=== PATIENT | female | born 1990 | race Caucasian/White ===

== ENCOUNTER 2016-11-13 22:44 | Inpatient (IN) | payer OTHER ==
[2016-11-13] MEDS ORDERED: HYDROmorphone 1 MG/ML 1 ML SYRINGE IVP STA (22:57)
--- NOTE | 2016-11-13 22:59 | ED ---
Abdominal Pain HPI - General Chief Complaint: Abdominal Pain Stated Complaint: abd pain Time Seen by Provider: 11/13/16 22:49 Source: patient, EMS, RN notes reviewed Mode of arrival: EMS Limitations: no limitations - History of Present Illness Initial Comments: This a 26-year-old female presents emergency Department with chief complaint of right flank pain. Patient is transferred for [facility] 2 year for possible septic stone. Patient states that she has a history kidney stones and states that she has prior stent placed 4 years ago in. Patient states that this will for 1 week after. Patient states that this pain started a few days ago pain radiates from her right back, flank region for right lower abdomen. states that she was in the hospital yesterday and signed out AMA because she had to take care of some things at home. She states she was written prescriptions for antibiotics for states that she was unable to keep anything down because she was vomiting. Patient sent here for further evaluation. Patient was given Rocephin at [facility]. Patient's lab work did reveal leukocytosis and urinary tract infection along with a stone in the right ureter. - Related Data Allergies Allergy/AdvReac Type Severity Reaction Status Date / Time ketorolac [From Toradol] Allergy Rash/Hives Verified 11/13/16 23:18 metronidazole [From Flagyl] Allergy Rash/Hives Verified 11/13/16 23:18 Review of Systems ROS Statement: Those systems with pertinent positive or pertinent negative responses have been documented in the HPI. ROS Other: All systems not noted in ROS Statement are negative. Past Medical History Past Medical History: Asthma History of Any Multi-Drug Resistant Organisms: None Reported Past Surgical History: Tonsillectomy Additional Past Surgical History / Comment(s): kidney stent right side Past Psychological History: Anxiety Smoking Status: Never smoker Past Alcohol Use History: None Reported Past Drug Use History: None Reported General Exam Limitations: no limitations General appearance: alert, in no apparent distress Head exam: Present: atraumatic, normocephalic, normal inspection Respiratory exam: Present: normal lung sounds bilaterally. Absent: respiratory distress, wheezes, rales, rhonchi, stridor Cardiovascular Exam: Present: regular rate, normal rhythm, normal heart sounds. Absent: systolic murmur, diastolic murmur, rubs, gallop, clicks GI/Abdominal exam: Present: soft, tenderness (Mild right-sided), normal bowel sounds. Absent: distended, guarding, rebound, rigid Back exam: Present: CVA tenderness (R). Absent: CVA tenderness (L) Skin exam: Present: warm, dry, intact, normal color. Absent: rash Course Vital Signs 11/13/16 22:47 Temperature 98.6 F Pulse Rate 104 H Respiratory 18 Rate Blood Pressure 164/94 O2 Sat by Pulse 97 Oximetry Disposition Clinical Impression: Ureteral stone, UTI (urinary tract infection) Narrative: septic kidney stone Disposition: ADMITTED IP TO THIS HOSP Condition: Fair Referrals: Nonstaff,Physician [Primary Care Provider] - 1-2 days
[2016-11-13] MEDS ORDERED: NALOXONE 0.4 MG/ML 1 ML VIAL IV PRN (23:22)
[2016-11-13] MEDS ORDERED: ONDANSETRON 4 MG/2 ML VIAL IVP PRN (23:22)
[2016-11-13] MEDS ORDERED: LORazepam 2 MG/ML SYRINGE IV STA (23:27)
[2016-11-13] MEDS: SODIUM CHLORIDE 0.9% 1,000 ML IV SCH (23:44)
--- NOTE | 2016-11-13 23:52 | P.GSHP ---
History of Present Illness H&P Date: 11/13/16 SURYA is a 26-year-old female who approximate 48 hours ago developed severe right flank pain. It persisted such that she ended up in the [place] emergency room this evening. She is evaluated and found to have a 3-4 mm distal ureteral stone with hydronephrosis on the right. The urine was infected. She was febrile and [facility]. She had an elevated white count of 15, 000 was tachycardic. She is transferred to [facility] for further evaluation. We are asked see the patient. The patient does have a history kidney stones. When comfortable at this point in time. Above-mentioned findings had been verified by me. She'll be admitted to hospital for urgent placement of a double-J catheter IV antibiotics. - Constitutional Constitutional: Reports anorexia, Reports chills, Reports fever - Genitourinary (Female) Genitourinary: Reports as per HPI - Musculoskeletal Musculoskeletal: Reports low back pain Past Medical History Past Medical History: Asthma, Osteoarthritis (OA) History of Any Multi-Drug Resistant Organisms: None Reported Past Surgical History: Tonsillectomy Additional Past Surgical History / Comment(s): kidney stent right side Past Psychological History: Anxiety Smoking Status: Never smoker Past Alcohol Use History: None Reported Past Drug Use History: None Reported Medications and Allergies Home Medications Medication Instructions Recorded Confirmed Type ALPRAZolam [Xanax] 0.25 mg PO BID PRN 11/13/16 11/13/16 History Albuterol Inhaler [Ventolin Hfa 1 puff INHALATION RT-QID PRN 11/13/16 11/13/16 History Inhaler] Albuterol Sulfate 1.25 mg INHALATION RT-TID PRN 11/13/16 11/13/16 History Baclofen [Lioresal] 20 mg PO BID PRN 11/13/16 11/13/16 History Budesonide-Formot 160-4.5 Mcg 1 puff INHALATION RT-BID PRN 11/13/16 11/13/16 History [Symbicort 160-4.5 Mcg Inhaler] HYDROcodone/APAP 7.5-325MG [[place] 1 tab PO BID 11/13/16 11/13/16 History 7.5-325] Ibuprofen 600 mg PO BID PRN 11/13/16 11/13/16 History Levofloxacin [Levaquin] 500 mg PO DAILY 11/13/16 11/13/16 History Omeprazole 20 mg PO DAILY 11/13/16 11/13/16 History Ondansetron [Zofran ODT] 4 mg PO Q8HR PRN 11/13/16 11/13/16 History Topiramate [Topamax] 50 mg PO BID 11/13/16 11/13/16 History busPIRone HCL [Buspar] 7.5 mg PO BID 11/13/16 11/13/16 History Allergies Allergy/AdvReac Type Severity Reaction Status Date / Time ketorolac [From Toradol] Allergy Rash/Hives Verified 11/13/16 23:18 metronidazole [From Flagyl] Allergy Rash/Hives Verified 11/13/16 23:18 Surgical - Exam Vital Signs Temp Pulse Resp BP Pulse Ox 98.6 F 104 H 18 164/94 97 11/13/16 22:47 11/13/16 22:47 11/13/16 22:47 11/13/16 22:47 11/13/16 22:47 - General well developed, well nourished, moderate distress, moderate pain - Eyes PERRL - ENT no hearing loss - Neck trachea midline - Respiratory normal expansion, normal respiratory effort - Cardiovascular Rhythm: regular - Abdomen Abdomen: tender - Neurologic normal coordination, normal sensation - Musculoskeletal normal posture - Psychiatric oriented to time, oriented to person, oriented to place, speech is normal, memory intact Assessment and Plan Plan: Impression: Acute right ureteral colic secondary to obstructing distal ureteral stone, urinary tract infection with sepsis, pyonephrosis right Recommendations. The patient will receive IV antibiotics and an emergent placement of a double-J catheter to relieve the obstruction and pyelonephrosis.
[2016-11-14] MEDS ORDERED: PROPOFOL 10 MG/ML 20 ML VIAL IV ONE (00:29)
[2016-11-14] MEDS ORDERED: MIDAZOLAM 2 MG/2 ML VIAL ONE (00:29)
[2016-11-14] MEDS ORDERED: fentaNYL (PF) 50 MCG/ML 2 ML AMP ONE (00:29)
[2016-11-14] MEDS ORDERED: ONDANSETRON 4 MG/2 ML VIAL ONE (00:29)
[2016-11-14] MEDS ORDERED: SODIUM CHLORIDE 0.9% 1,000 ML IV ONE (00:49)
[2016-11-14] MEDS ORDERED: ALBUTEROL SULFATE 1.25 MG INHALATION PRN (00:57)
[2016-11-14] MEDS ORDERED: BACLOFEN 10 MG TAB PO PRN (00:57)
[2016-11-14] MEDS ORDERED: ONDANSETRON ODT 4 MG TAB PO PRN (00:57)
[2016-11-14] MEDS ORDERED: ONDANSETRON 4 MG/2 ML VIAL IVP PRN (01:01)
--- NOTE | 2016-11-14 01:04 | P.OP ---
Date of Procedure: 11/14/16 Preoperative Diagnosis: Ureteral calculus, urinary tract infection with sepsis, right pyelonephrosis Postoperative Diagnosis: Same Procedure(s) Performed: Cystoscopy placement of 6 x 24 double-J catheter Anesthesia: MAC Surgeon: Jose Jarvis Pathology: none sent Condition: stable Disposition: PACU Indications for Procedure: The patient is a 26-year-old female with an obstructing right ureteral calculus in [facility] she has a urinary tract infection with sepsis with fever chills and it was elevated white count. She is tachycardic. She comes for cystoscopy and stent Description of Procedure: Patient brought to the operating suite she is given IV sedation. She's placed lithotomy position with a sterile prep and drape. Cystoscopy is performed identifying acute and chronic cystitis. The right ureteral orifice is identified. The stone was seen on fluoroscopy. An 035 wires passed into the right ureter. It meet some obstruction at the stone just proximal to the bladder on the right side. The wire successfully goes by the stone up into the renal pelvis. Over the wires passed a 6 x 24 double-J catheter that coils in the renal pelvis and in the bladder the bladder strain the patient's awake and returned recovery in good condition tell her procedure well she'll be observed in the hospital overnight. In antibiotics a week to 10 days and then require formal cystoscopy and stent removal as well as stone removal. End of dictation
[2016-11-14] MEDS: HYDROmorphone 1 MG/ML 1 ML SYRINGE IV PRN ×8 (01:47→23:34)
[2016-11-14] MEDS: ALPRAZolam 0.25 MG TAB PO PRN (01:47)
[2016-11-14] MEDS: DEXTROSE 5%-0.45% NACL 1,000 ML IV SCH ×4 (01:56→23:55)
[2016-11-14] MEDS: ALBUTEROL NEBULIZED 2.5 MG/3 ML INHALATION PRN ×2 (07:41→17:43)
--- NOTE | 2016-11-14 07:46 | FL ---
EXAMINATION TYPE: FL fluoroscopy <1hr DATE OF EXAM: 11/14/2016 COMPARISON: NONE HISTORY: Right-sided double J catheter TECHNIQUE: Fluoroscopy. FINDINGS/IMPRESSION: Fluoroscopic guidance was provided during procedure performed by Dr. Jarvis. A total of 8 seconds of fluoroscopic time was utilized during the procedure.
[2016-11-14] MEDS: SYMBICORT 160-4.5 MCG INHALER INHALATION SCH ×2 (07:51→21:25)
[2016-11-14] MEDS: PANTOPRAZOLE 40 MG TABLET PO SCH (08:14)
[2016-11-14] MEDS: LEVOFLOXACIN 500 MG TAB PO SCH (08:14)
[2016-11-14] MEDS: TOPIRAMATE 25 MG TAB PO SCH ×2 (08:14→20:46)
[2016-11-14] MEDS: busPIRone HCl 5 MG TAB PO SCH ×2 (09:00→20:45)
[2016-11-14] MEDS ORDERED: HYDROcodone/APAP 7.5-325MG 1 EACH TAB PO PRN (09:00)
[2016-11-14] MEDS: IBUPROFEN 600 MG TAB PO PRN ×2 (11:21→23:31)
--- NOTE | 2016-11-14 15:04 | P.PN ---
Progress Note - Text The patient underwent stent insertion overnight for a distal ureteral calculus complicating a UTI. She is currently afebrile. She reports discomfort primarily when standing, and I explained that this is likely due to her ureteral stent. Her condition is stable. Antibiotics will be continued.
[2016-11-15] MEDS: SODIUM CHLORIDE 0.9% 1,000 ML IV SCH ×3 (02:12→06:24)
[2016-11-15] MEDS: HYDROmorphone 1 MG/ML 1 ML SYRINGE IV PRN ×2 (03:08→07:08)
[2016-11-15] MEDS: DEXTROSE 5%-0.45% NACL 1,000 ML IV SCH (06:25)
[2016-11-15] MEDS: PANTOPRAZOLE 40 MG TABLET PO SCH (07:04)
[2016-11-15] MEDS: IBUPROFEN 600 MG TAB PO PRN (07:11)
--- NOTE | 2016-11-15 07:38 | P.DS ---
Providers Date of admission: 11/13/16 23:42 Attending physician: Jose Jarvis Primary care physician: Physician Nonstaff Hospital Course: This 26-year-old female transferred from [facility] ons 11/13/2016 for a ureteral calculus, urinary tract infection with sepsis. She required an emergent placement of a double-J catheter. Her pain has disappeared. Her sepsis has cleared. He feels much better. She'll be discharged home today. She'll follow-up in the office next week. She'll be set up for about 10 days to have a formal cystoscopy stent and stone removal. She has O Lazaro and pain medicine at home and she'll continue that as previously instructed. Postoperative instructions have been given. The stent has been discussed. We also will deal with her kidney stones later date after the ureteral stone is dealt with. Patient Condition at Discharge: Good Plan - Discharge Summary New Discharge Prescriptions: No Action Albuterol Inhaler [Ventolin Hfa Inhaler] 1 puff INHALATION RT-QID PRN PRN Reason: Shortness Of Breath Albuterol Sulfate 1.25 mg INHALATION RT-TID PRN PRN Reason: Shortness Of Breath ALPRAZolam [Xanax] 0.25 mg PO BID PRN PRN Reason: Anxiety Baclofen [Lioresal] 20 mg PO BID PRN PRN Reason: Muscle Spasm Budesonide-Formot 160-4.5 Mcg [Symbicort 160-4.5 Mcg Inhaler] 1 puff INHALATION RT-BID PRN PRN Reason: Shortness Of Breath busPIRone HCL [Buspar] 7.5 mg PO BID HYDROcodone/APAP 7.5-325MG [[place] 7.5-325] 1 tab PO BID Ibuprofen 600 mg PO BID PRN PRN Reason: Pain Levofloxacin [Levaquin] 500 mg PO DAILY Omeprazole 20 mg PO DAILY Ondansetron [Zofran ODT] 4 mg PO Q8HR PRN PRN Reason: Nausea And/Or Vomiting Topiramate [Topamax] 50 mg PO BID Discharge Medication List ALPRAZolam [Xanax] 0.25 mg PO BID PRN 11/13/16 [History] Albuterol Inhaler [Ventolin Hfa Inhaler] 1 puff INHALATION RT-QID PRN 11/13/16 [ History] Albuterol Sulfate 1.25 mg INHALATION RT-TID PRN 11/13/16 [History] Baclofen [Lioresal] 20 mg PO BID PRN 11/13/16 [History] Budesonide-Formot 160-4.5 Mcg [Symbicort 160-4.5 Mcg Inhaler] 1 puff INHALATION RT-BID PRN 11/13/16 [History] HYDROcodone/APAP 7.5-325MG [[place] 7.5-325] 1 tab PO BID 11/13/16 [History] Ibuprofen 600 mg PO BID PRN 11/13/16 [History] Levofloxacin [Levaquin] 500 mg PO DAILY 11/13/16 [History] Omeprazole 20 mg PO DAILY 11/13/16 [History] Ondansetron [Zofran ODT] 4 mg PO Q8HR PRN 11/13/16 [History] Topiramate [Topamax] 50 mg PO BID 11/13/16 [History] busPIRone HCL [Buspar] 7.5 mg PO BID 11/13/16 [History] Activity/Diet/Wound Care/Special Instructions: The patient has pain medicine and antibiotic at home she should take as previously instructed Discharge Disposition: HOME SELF-CARE
[2016-11-15 07:56] VITALS: BP 127/88; PULSE 73; RESP 22; TEMP 98.1
[2016-11-15] MEDS: TOPIRAMATE 25 MG TAB PO SCH (08:07)
[2016-11-15] MEDS: LEVOFLOXACIN 500 MG TAB PO SCH (08:08)
[2016-11-15] MEDS: ALPRAZolam 0.25 MG TAB PO PRN (08:11)
[2016-11-15] MEDS: busPIRone HCl 5 MG TAB PO SCH (08:13)
[2016-11-15] MEDS: SYMBICORT 160-4.5 MCG INHALER INHALATION SCH (09:21)
== END 2016-11-15 11:10 | disposition home or self-care (01) | DRG 872 ==
LOC: EC 22:44 → 6PED 23:42
PROVIDERS: ADMIT Urology; ATTEND Urology
PROC: 0T768DZ Dilation of Right Ureter with Intraluminal Device, Via Natural or Artificial Opening Endoscopic (ICD-10-PCS; principal; 2016-11-14 00:44)
DX: A41.9 Sepsis, unspecified organism (principal); N13.6 Pyonephrosis; N20.2 Calculus of kidney with calculus of ureter; F41.9 Anxiety disorder, unspecified; J45.909 Unspecified asthma, uncomplicated; R00.0 Tachycardia, unspecified; M19.90 Unspecified osteoarthritis, unspecified site; Z88.1 Allergy status to other antibiotic agents; Z88.5 Allergy status to narcotic agent; Z91.19 Patient's noncompliance with other medical treatment and regimen; Z87.442 Personal history of urinary calculi; Z79.51 Long term (current) use of inhaled steroids; Z79.899 Other long term (current) drug therapy; Z79.1 Long term (current) use of non-steroidal anti-inflammatories (NSAID); Z79.891 Long term (current) use of opiate analgesic
CPT/HCPCS: 76000; 94640; 94760; 96361; 96374; 99285

== ENCOUNTER 2016-11-18 13:32 | Inpatient (IN) | payer OTHER ==
[2016-11-18] MEDS ORDERED: METOCLOPRAMIDE 5 MG/ML 2 ML VIAL IVP STA (13:46)
[2016-11-18] MEDS ORDERED: SODIUM CHLORIDE 0.9% 1,000 ML IV STA (13:46)
[2016-11-18] MEDS ORDERED: MORPHINE SULFATE 4 MG/ML SYRINGE IV STA ×2 (13:46→16:08)
--- NOTE | 2016-11-18 14:10 | ED ---
Abdominal Pain HPI - General Chief Complaint: Abdominal Pain Stated Complaint: PAIN POST OP KIDNEY Time Seen by Provider: 11/18/16 13:38 Source: patient Mode of arrival: EMS Limitations: no limitations - History of Present Illness Initial Comments: This 26-year-old white female presents complaining of some right flank pain. She states that she recently had a right ureteral stone as well as a urinary tract infection. She was seen at her hospital this past week and had a right ureteral stent placed. Since being discharged several days ago she has had continued right flank pain. She states that this is not relieved with her [place] 7.5/325 twice a day. She also complains of hematuria, frequency, and dysuria. She states that the pain radiates into her vagina. She denies any actual fevers but has had occasional chills. She has had some nausea at times. She is taking Zofran for this with control. No other complaints or modifying factors. - Related Data Home Medications Medication Instructions Recorded Confirmed ALPRAZolam [Xanax] 0.25 mg PO BID PRN 11/13/16 11/18/16 Albuterol Inhaler [Ventolin Hfa 1 puff INHALATION RT-QID PRN 11/13/16 11/18/16 Inhaler] Albuterol Sulfate 1.25 mg INHALATION RT-TID PRN 11/13/16 11/18/16 Baclofen [Lioresal] 20 mg PO BID PRN 11/13/16 11/18/16 Budesonide-Formot 160-4.5 Mcg 1 puff INHALATION RT-BID PRN 11/13/16 11/18/16 [Symbicort 160-4.5 Mcg Inhaler] HYDROcodone/APAP 7.5-325MG [[place] 1 tab PO BID 11/13/16 11/18/16 7.5-325] Ibuprofen 600 mg PO BID PRN 11/13/16 11/18/16 Levofloxacin [Levaquin] 500 mg PO DAILY 11/13/16 11/18/16 Omeprazole 20 mg PO DAILY 11/13/16 11/18/16 Ondansetron [Zofran ODT] 4 mg PO Q8HR PRN 11/13/16 11/18/16 Topiramate [Topamax] 50 mg PO BID 11/13/16 11/18/16 busPIRone HCL [Buspar] 7.5 mg PO BID 11/13/16 11/18/16 Allergies Allergy/AdvReac Type Severity Reaction Status Date / Time ketorolac [From Toradol] Allergy Rash/Hives Verified 11/18/16 13:50 metronidazole [From Flagyl] Allergy Rash/Hives Verified 11/18/16 13:50 Review of Systems ROS Statement: Those systems with pertinent positive or pertinent negative responses have been documented in the HPI. ROS Other: All systems not noted in ROS Statement are negative. Past Medical History Past Medical History: Asthma, Osteoarthritis (OA) Additional Past Medical History / Comment(s): kidney stones History of Any Multi-Drug Resistant Organisms: None Reported Past Surgical History: Tonsillectomy Additional Past Surgical History / Comment(s): kidney stent right side, RT ovary / fallopian tube removed Past Anesthesia/Blood Transfusion Reactions: No Reported Reaction Past Psychological History: Anxiety Smoking Status: Current some day smoker Past Alcohol Use History: None Reported Past Drug Use History: Marijuana - Past Family History Mother Family Medical History: Congestive Heart Failure (CHF) General Exam - General Exam Comments Initial Comments: GENERAL: The patient is well nourished and well hydrated. VITAL SIGNS: Heart rate, blood pressure, respiratory rate reviewed as recorded in nurse's notes. EYES: Pupils are round and reactive. Extraocular movements are intact. No conjunctival / lid redness or swelling. ENT: No external evidence of injury, swelling, or ecchymosis. Airway is patent. Throat is clear. NECK: Nontender. No swelling or evidence of injury. No subcutaneous emphysema. Trachea is midline. No thyroid mass. HEART: Regular rate and rhythm. Good peripheral pulses. LUNGS/CHEST: Breath sounds clear and equal bilaterally. No rales, rhonchi, or wheezes. No ecchymosis, subcutaneous emphysema, or tenderness. ABDOMEN: There is tenderness present to the right flank as well as the right lateral abdomen. No palpable masses or organomegaly. No peritoneal signs. No abdominal wall swelling or ecchymosis. EXTREMITIES: No extremity tenderness. Normal muscle tone and function. No thoracolumbar tenderness. NEUROLOGIC: Sensation is grossly intact. Cranial nerve exam reveals face is symmetrical, tongue is midline, speech is clear. SKIN: No abrasions or ecchymosis is noted. No induration or masses noted. PSYCHIATRIC: Alert and oriented. Appropriate behavior and judgment. Limitations: no limitations Course Vital Signs 11/18/16 11/18/16 11/18/16 13:35 14:09 16:00 Temperature 98.1 F 97.9 F Pulse Rate 76 64 63 Respiratory 18 16 16 Rate Blood Pressure 134/74 115/56 103/59 O2 Sat by Pulse 96 96 98 Oximetry Medical Decision Making - Medical Decision Making The patient was seen and examined. An IV is started and she is hydrated. She also receives some morphine as well as Reglan intravenously. All diagnostics are reviewed. The laboratory shows a leukocytosis. The urinalysis does show hematuria as well as a urinary tract infection. The computed tomography scan of the abdomen and pelvis does show good placement of the ureteral to with no hydronephrosis and no evidence of the ureteral lithiasis. They're still is bilateral renal lithiasis. The patient's pain has been persistent and she receives additional morphine. She has been on Levaquin so her antibiotics will be changed. It is felt as though she would require admission to the hospital for likely pyelonephritis and intractable pain issues. The case is discussed with internal medicine and they're agreeable to admission. - Lab Data Result diagrams: 11/18/16 14:05 11/18/16 14:05 Lab Results 11/18/16 11/18/16 11/18/16 Range/Units 14:05 14:05 14:05 WBC 11.5 H (3.8-10.6) k/uL RBC 4.51 (3.80-5.40) m/uL Hgb 12.8 (11.4-16.0) gm/dL Hct 40.1 (34.0-46.0) % MCV 89.1 (80.0-100.0) fL MCH 28.4 (25.0-35.0) pg MCHC 31.9 (31.0-37.0) g/dL RDW 14.2 (11.5-15.5) % Plt Count 346 (150-450) k/uL Neutrophils % 68 % Lymphocytes % 23 % Monocytes % 5 % Eosinophils % 3 % Basophils % 1 % Neutrophils # 7.8 H (1.3-7.7) k/uL Lymphocytes # 2.7 (1.0-4.8) k/uL Monocytes # 0.6 (0-1.0) k/uL Eosinophils # 0.3 (0-0.7) k/uL Basophils # 0.1 (0-0.2) k/uL PT (9.0-12.0) sec INR (<1.2) APTT (22.0-30.0) sec Sodium 141 (137-145) mmol/L Potassium 4.4 (3.5-5.1) mmol/L Chloride 108 H (98-107) mmol/L Carbon Dioxide 24 (22-30) mmol/L Anion Gap 9 mmol/L BUN 14 (7-17) mg/dL Creatinine 0.89 (0.52-1.04) mg/dL Est GFR (MDRD) Af Amer >60 (>60 ml/min/1.73 sqM) Est GFR (MDRD) Non-Af >60 (>60 ml/min/1.73 sqM) Glucose 89 (74-99) mg/dL Calcium 8.8 (8.4-10.2) mg/dL Total Bilirubin 0.1 L (0.2-1.3) mg/dL AST 16 (14-36) U/L ALT 27 (9-52) U/L Alkaline Phosphatase 59 (38-126) U/L Total Protein 6.4 (6.3-8.2) g/dL Albumin 3.7 (3.5-5.0) g/dL Urine Color Light Red Urine Appearance Cloudy H (Clear) Urine pH 5.5 (5.0-8.0) Ur Specific [place] 1.020 (1.001-1.035) Urine Protein 2+ H (Negative) Urine Glucose (UA) Negative (Negative) Urine Ketones Negative (Negative) Urine Blood Large H (Negative) Urine Nitrite Negative (Negative) Urine Bilirubin Negative (Negative) Urine Urobilinogen <2.0 (<2.0) mg/dL Ur Leukocyte Esterase Large H (Negative) Urine RBC >182 H (0-5) /hpf Urine WBC 54 H (0-5) /hpf Ur Squamous Epith Cells 15 H (0-4) /hpf Urine Bacteria Moderate H (None) /hpf Urine Mucus Many H (None) /hpf 11/18/16 Range/Units 14:05 WBC (3.8-10.6) k/uL RBC (3.80-5.40) m/uL Hgb (11.4-16.0) gm/dL Hct (34.0-46.0) % MCV (80.0-100.0) fL MCH (25.0-35.0) pg MCHC (31.0-37.0) g/dL RDW (11.5-15.5) % Plt Count (150-450) k/uL Neutrophils % % Lymphocytes % % Monocytes % % Eosinophils % % Basophils % % Neutrophils # (1.3-7.7) k/uL Lymphocytes # (1.0-4.8) k/uL Monocytes # (0-1.0) k/uL Eosinophils # (0-0.7) k/uL Basophils # (0-0.2) k/uL PT 10.7 (9.0-12.0) sec INR 1.1 (<1.2) APTT 26.6 (22.0-30.0) sec Sodium (137-145) mmol/L Potassium (3.5-5.1) mmol/L Chloride (98-107) mmol/L Carbon Dioxide (22-30) mmol/L Anion Gap mmol/L BUN (7-17) mg/dL Creatinine (0.52-1.04) mg/dL Est GFR (MDRD) Af Amer (>60 ml/min/1.73 sqM) Est GFR (MDRD) Non-Af (>60 ml/min/1.73 sqM) Glucose (74-99) mg/dL Calcium (8.4-10.2) mg/dL Total Bilirubin (0.2-1.3) mg/dL AST (14-36) U/L ALT (9-52) U/L Alkaline Phosphatase (38-126) U/L Total Protein (6.3-8.2) g/dL Albumin (3.5-5.0) g/dL Urine Color Urine Appearance (Clear) Urine pH (5.0-8.0) Ur Specific [place] (1.001-1.035) Urine Protein (Negative) Urine Glucose (UA) (Negative) Urine Ketones (Negative) Urine Blood (Negative) Urine Nitrite (Negative) Urine Bilirubin (Negative) Urine Urobilinogen (<2.0) mg/dL Ur Leukocyte Esterase (Negative) Urine RBC (0-5) /hpf Urine WBC (0-5) /hpf Ur Squamous Epith Cells (0-4) /hpf Urine Bacteria (None) /hpf Urine Mucus (None) /hpf Disposition Clinical Impression: Flank pain, Nausea, Dysuria, Pyelonephritis, Nephrolithiasis, Leukocytosis, Intractable pain, Hematuria, History of ureter stent Disposition: ADMITTED IP TO THIS HOSP Condition: Good Referrals: Han Ngo DO [Primary Care Provider] - 1-2 days
[2016-11-18 14:22] LABS: Basophils # (A) 0.1 k/uL (0-0.2); Basophils % (A) 1 %; CH 29.4; CHCM 33.2; Eosinophils # (A) 0.3 k/uL (0-0.7); Eosinophils % (A) 3 %; HCT 40.1 % (34.0-46.0); HDW 2.51; HGB 12.8 gm/dL (11.4-16.0); Luc % (Auto) 1; Lymphocytes # (A) 2.7 k/uL (1.0-4.8); Lymphocytes % (A) 23 %; MCH 28.4 pg (25.0-35.0); MCHC 31.9 g/dL (31.0-37.0); MCV 89.1 fL (80.0-100.0); Mean Platelet Volume 6.9; Monocytes # (A) 0.6 k/uL (0-1.0); Monocytes % (A) 5 %; Neutrophils # (A) 7.8 k/uL (1.3-7.7); Neutrophils % (A) 68 %; RBC 4.51 m/uL (3.80-5.40); RDW 14.2 % (11.5-15.5); WBC 11.5 k/uL (3.8-10.6); WBC (Perox) 12.13
[2016-11-18 14:33] LABS: Appearance,Urine Cloudy (Clear); Bacteria,Urine Moderate /hpf; Bilirubin,Urine Negative (Negative); Glucose,Urine (UA) Negative (Negative); Ketones,Urine Negative (Negative); Leukocyte Esterase,Urine Large (Negative); Mucus,Urine Many /hpf; Nitrite,Urine Negative (Negative); PH, Urine 5.5 (5.0-8.0); Particle Count 14135; Protein,Urine 2+ (Negative); RBC,Urine >182 /hpf (0-5); Squamous Epithelial Cell,Urine 15 /hpf (0-4); UA Billing (MACRO vs. MICRO) MICRO; Urobilinogen,Urine <2.0 mg/dL (<2.0); WBC,Urine 54 /hpf (0-5)
[2016-11-18 14:36] LABS: INR 1.1 (<1.2); Partial Thromboplastin Time 26.6 sec (22.0-30.0); Prothrombin Time 10.7 sec (9.0-12.0)
[2016-11-18 14:38] LABS: ALT 27 U/L (9-52); AST 16 U/L (14-36); Alkaline Phosphatase 59 U/L (38-126); Anion Gap 9 mmol/L; Blood Urea Nitrogen 14 mg/dL (7-17); Calcium 8.8 mg/dL (8.4-10.2); Carbon Dioxide 24 mmol/L (22-30); Chloride 108 mmol/L (98-107); Glucose 89 mg/dL (74-99); Non-African American GFR(MDRD) >60 (>60 ml/min/1.73 sqM); Potassium 4.4 mmol/L (3.5-5.1); Sodium 141 mmol/L (137-145); Total Bilirubin 0.1 mg/dL (0.2-1.3); Total Protein 6.4 g/dL (6.3-8.2)
[2016-11-18] MEDS: SODIUM CHLORIDE 0.9% 1,000 ML IV STA (14:58)
--- NOTE | 2016-11-18 15:17 | CT ---
EXAMINATION TYPE: CT abdomen pelvis wo con DATE OF EXAM: 11/18/2016 COMPARISON: Outside CT 11/12/2016 HISTORY: 26-year-old female Right side pain. Recent stent placed in kidney. CT DLP: 1010.5 mGycm. Automated exposure control for dose reduction was used. TECHNIQUE: Contiguous axial scanning of the abdomen and pelvis without IV contrast. Coronal and sagit luis reconstructions performed. FINDINGS: The heart is normal size without pericardial effusion. Some hazy atelectasis posterior lung bases. No pleural effusion. Noncontrast appearance of the liver, gallbladder, adrenal glands, kidneys, and spleen show no gross a bnormality. Three nonobstructive left renal calculi, largest in the lower pole measuring 5 mm. A couple punctate 2 mm nonobstructive calculi in the upper pole of the right kidney. A right ureteral stent is now present. The previously seen 3 mm distal right ureteral calculus is no longer identifie d. The previous hydronephrosis also appears to have resolved. Scattered borderline sized mesenteric lymph nodes measure up to 6 mm in the right abdomen. No dilated small bowel, free fluid, or free air. Mild scattered stool without pericolonic inflammatory change. Bladder is nondistended. Uterus and left ovary is visualized with a 3.3 cm dominant follicle or funct ional cyst. Right ovary not clearly delineated. Small amount of cul-de-sac free fluid likely physiolo gic. Bones: Degenerative changes at the right SI joint with subarticular sclerosis and cystic change. Dege nerative disc disease at L5-S1. No osseous destructive process. IMPRESSION: 1. Right-sided ureteral stent with resolution of the previous hydronephrosis seen on 11/12/2016 as we ll as resolution of the previous 3 mm distal right ureteral calculus. 2. Bilateral nonobstructive nephrolithiasis measuring up to 5 mm. 3. A 3.3 cm dominant follicle or functional cyst in the left ovary. Small amount of cul-de-sac free fluid likely physiologic. 4. Degenerative changes at the right SI joint and degenerative disc disease at L5-S1.
[2016-11-18] MEDS ORDERED: ONDANSETRON 4 MG/2 ML VIAL IVP PRN (16:28)
[2016-11-18] MEDS ORDERED: MORPHINE SULFATE 4 MG/ML SYRINGE IV PRN (16:28)
[2016-11-18] MEDS ORDERED: ACETAMINOPHEN TAB 325 MG TAB PO PRN (16:28)
[2016-11-18] MEDS ORDERED: PIPERACILLIN-TAZOBACTAM 3.375 GM in DEXTROSE/WATER 1 50ML.BAG IVPB STA (16:28)
[2016-11-18] MEDS ORDERED: NALOXONE 0.4 MG/ML 1 ML VIAL IV PRN (16:28)
[2016-11-18] MEDS ORDERED: IBUPROFEN 600 MG TAB PO PRN (16:31)
[2016-11-18] MEDS ORDERED: BACLOFEN 10 MG TAB PO PRN (16:31)
[2016-11-18] MEDS ORDERED: ALBUTEROL NEBULIZED 2.5 MG/3 ML INHALATION PRN (16:31)
[2016-11-18] MEDS ORDERED: ALBUTEROL SULFATE 1.25 MG INHALATION PRN (16:31)
--- NOTE | 2016-11-18 18:36 | P.HPIM ---
History of Present Illness H&P Date: 11/18/16 Chief Complaint: severe right flank pain and hematuria 26-year-old female with past medical history of frequent nephrolithiasis and chills. Patient reports pain mainly in the right flank radiating to the lower back and the right groin area and the vagina she describes the pain as colicky in nature ranging between 10 out of 10 in severity and down to 5 out of 10 in severity in between attacks this has been associated with decrease in her urine output frequent urination and urgency along with dysuria and hematuria. His is also associated with chills nausea and vomiting once nonbloody. She reports no diarrhea no vaginal discharge otherwise no abdominal pain chest pain or trouble breathing. She reports that her problem has mainly started 2 weeks ago for which she was admitted under urology who did cystoscopy and inserted down the ureteral stent on the right side for ureteral stones. CAT scan from today showed resolution of the right ureteral stone along with confirmed position of the right Q ureteral stent. Also suggested at 3.3 cm left ovarian follicle with the free fluid in the cul-de-sac. Patient was discharged a week ago on Levaquin however due to progression of her symptoms she fevers and chills along with worsening urinary symptoms she decided to come back to the hospital. Review of Systems Constitutional: Patient reports no night sweating, no significant weight changes Eyes: Patient reports no visual changes, no eye pain ENT: Patient reports no ear pain, no rhinorrhea, no sore throat Cardiovascular: Patient reports no chest pain, no exertional dyspnea, no peripheral leg edema, no orthopnea, no paroxysmal nocturnal dyspnea Respiratory:Patient reports no cough, no wheezing, no shortness of breath Gastrointestinal: Patient reports no diarrhea, no constipation, Musculoskeletal: Patient reports no muscle pain, no joint pain Psychiatric: Patient reports no changes in mood or memory, no suicidal ideation , no anxiety Endocrine: Patient reports no heat intolerance, no cold intolerance, no excessive thirst, no polyuria Neurological: Patient reports no focal neurologic deficits, no weakness, no numbness, no tingling Hem/Lymphatic: Patient reports no bleeding tendency, no bruising, no swollen lymph glands Allergic/Immun: Patient reports no recent allergic reactions Skin: Patient reports no rashes, no pruritis, no ulcers Past Medical History Past Medical History: Asthma, Osteoarthritis (OA) Additional Past Medical History / Comment(s): kidney stones recurrent History of Any Multi-Drug Resistant Organisms: None Reported Past Surgical History: Tonsillectomy Additional Past Surgical History / Comment(s): kidney stent right side, RT ovary / 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, tonsillectomy, Past Anesthesia/Blood Transfusion Reactions: No Reported Reaction Past Psychological History: Anxiety Smoking Status: Former smoker Past Alcohol Use History: None Reported Past Drug Use History: None Reported - Past Family History Mother Family Medical History: Congestive Heart Failure (CHF) Father Family Medical History: Diabetes Mellitus Medications and Allergies Home Medications and Allergies Comment(s): Reviewed Home Medications Medication Instructions Recorded Confirmed Type ALPRAZolam [Xanax] 0.25 mg PO BID PRN 11/13/16 11/18/16 History Albuterol Inhaler [Ventolin Hfa 1 puff INHALATION RT-QID PRN 11/13/16 11/18/16 History Inhaler] Albuterol Sulfate 1.25 mg INHALATION RT-TID PRN 11/13/16 11/18/16 History Baclofen [Lioresal] 20 mg PO BID PRN 11/13/16 11/18/16 History Budesonide-Formot 160-4.5 Mcg 1 puff INHALATION RT-BID PRN 11/13/16 11/18/16 History [Symbicort 160-4.5 Mcg Inhaler] HYDROcodone/APAP 7.5-325MG [[place] 1 tab PO BID 11/13/16 11/18/16 History 7.5-325] Ibuprofen 600 mg PO BID PRN 11/13/16 11/18/16 History Levofloxacin [Levaquin] 500 mg PO DAILY 11/13/16 11/18/16 History Omeprazole 20 mg PO DAILY 11/13/16 11/18/16 History Ondansetron [Zofran ODT] 4 mg PO Q8HR PRN 11/13/16 11/18/16 History Topiramate [Topamax] 50 mg PO BID 11/13/16 11/18/16 History busPIRone HCL [Buspar] 7.5 mg PO BID 11/13/16 11/18/16 History Allergies Allergy/AdvReac Type Severity Reaction Status Date / Time ketorolac [From Toradol] Allergy Rash/Hives Verified 11/18/16 13:50 metronidazole [From Flagyl] Allergy Rash/Hives Verified 11/18/16 13:50 Physical Exam Vitals: Vital Signs Temp Pulse Pulse Resp BP BP Pulse Ox 11/18/16 18:02 98.6 F 70 20 125/76 96 11/18/16 17:36 97.7 F 72 19 151/91 95 11/18/16 16:00 97.9 F 63 16 103/59 98 11/18/16 14:09 64 16 115/56 96 11/18/16 13:35 98.1 F 76 18 134/74 96 Intake and Output 11/18/16 11/18/16 11/18/16 06:59 14:59 22:59 Other: Weight 109.769 kg 111.7 kg Patient Weight 11/19/16 06:59 Weight 111.7 kg Constitutional: Moderate distress while having attacks of colicky abdominal pain otherwise conversant, pleasant Eyes: Anicteric sclerae, moist conjunctiva, no lid-lag Pupils equal round reactive to light ENMT: NC/AT Oropharynx clear, no erythema, exudates Neck: Supple, FROM, no masses, or JVD No carotid bruits No thyromegaly Lungs: Clear to auscultation Clear to percussion Normal respiratory effort, no accessory muscle use Cardiovascular: Heart regular in rate and rhythm, No murmurs, gallops, or rubs No peripheral edema Abdominal: Soft Nontender, no guarding, rebound or rigidity Abdomen moving with respiration Normoactive bowel sounds No hepatomegaly, No splenomegaly No palpable mass No abdominal wall hernia noted Tenderness to percussion of the right costovertebral angle Skin: Normal temperature, tone, texture, turgor No induration No subcutaneous nodules No rash, lesions No ulcers Capillary refill is immediate over bilateral fingers and toes Extremities: No digital cyanosis No clubbing Pedal pulses intact and symmetrical Radial pulses intact and symmetrical No calf tenderness Psychiatric: Alert and oriented to person, place and time Appropriate affect fair judgment Neuro Muscles Strength 5/5 in all 4 extremities Sensation to light touch grossly present throughout Cranial nerves II-XII grossly intact No focal sensory deficits Lymphatics: no palpable cervical or supraclavicular , or inguinal lymph nodes Results Results: Reviewed CBC & Chem 7: 11/18/16 14:05 11/18/16 14:05 Labs: Abnormal Lab Results - Last 24 Hours (Table) 0911/18/16 11/18/16 Range/Units 14:05 14:05 14:05 WBC 11.5 H (3.8-10.6) k/uL Neutrophils # 7.8 H (1.3-7.7) k/uL Chloride 108 H (98-107) mmol/L Total Bilirubin 0.1 L (0.2-1.3) mg/dL Urine Appearance Cloudy H (Clear) Urine Protein 2+ H (Negative) Urine Blood Large H (Negative) Ur Leukocyte Esterase Large H (Negative) Urine RBC >182 H (0-5) /hpf Urine WBC 54 H (0-5) /hpf Ur Squamous Epith Cells 15 H (0-4) /hpf Urine Bacteria Moderate H (None) /hpf Urine Mucus Many H (None) /hpf Assessment and Plan (1) Pyelonephritis Narrative/Plan: Acute complicated pyelonephritis secondary to right ureteral stent and history of nephrolithiasis. Present on admission . No history of chronic Correa catheter. No evidence of sepsis Discontinue Levaquin, start patient on Rocephin check urine cultures and blood cultures Adjust antibiotics based on culture results Pain control Aggressive IV fluid hydration with normal saline at 150 mL per hour Status: Acute (2) Nephrolithiasis Narrative/Plan: Status post right ureteral stent Consults urology Pain control with NSAIDs Start Flomax Status: Acute (3) Asthma Narrative/Plan: Patient mild persistent asthma continue with home inhalers patient has no history of intubation Status: Chronic (4) DVT prophylaxis Narrative/Plan: Heparin subcu 3 times a day Status: Acute Plan: Surrogate decision-maker: father Renan Lara CODE STATUS: Full code Discussed with: Patient, ER, RN Anticipated discharge: 48-[address]: home with self care
--- NOTE | 2016-11-18 18:40 | P.HPADDEND ---
H&P Addendum H&P Addendum Date: 11/18/16 Advanced Care Planning Active diagnoses: acute pyelonephritis Background: The patient was admitted for treatment of acute UTI. Confirmation and clarification of wishes upon admission. Discussion: Person(s) present and participating in discussion: The patient, and myself Summary: Patient was counseled and educated regarding her disease process, along with plan of care, possible outcomes and complications. The patient chose to be full code and agreed to both CPR and Intubation if needed. In the event that she was not able to make her own medical decisions she has elected her Father, Renan Lara as a surrogate decision maker Time spent: Total time spent face to face in education and discussion directly related to advanced care planning: >15 minutes
[2016-11-18 18:45] VITALS: BMI 39.7
[2016-11-18] MEDS: HYDROmorphone 2 MG/ML 1 ML SYRINGE IM PRN (20:34)
[2016-11-18] MEDS: TAMSULOSIN 0.4 MG CAP.ER.24H PO SCH (20:44)
[2016-11-18] MEDS: TOPIRAMATE 25 MG TAB PO SCH (20:48)
[2016-11-18] MEDS: busPIRone HCl 5 MG TAB PO SCH (20:49)
[2016-11-19] MEDS ORDERED: PIPERACILLIN-TAZOBACTAM 3.375 GM in DEXTROSE/WATER 1 50ML.BAG IVPB SCH
[2016-11-19] MEDS: HYDROcodone/APAP 7.5-325MG 1 EACH TAB PO SCH ×3 (00:15→21:23)
[2016-11-19] MEDS: HYDROmorphone 2 MG/ML 1 ML SYRINGE IM PRN ×7 (00:42→22:11)
[2016-11-19] MEDS: ALPRAZolam 0.25 MG TAB PO PRN ×2 (01:07→18:15)
[2016-11-19] MEDS: SODIUM CHLORIDE 0.9% 1,000 ML IV STA ×3 (01:10→13:13)
[2016-11-19 07:56] LABS: Basophils # (A) 0.1 k/uL (0-0.2); Basophils % (A) 0 %; CHCM 31.6; Eosinophils # (A) 0.4 k/uL (0-0.7); Eosinophils % (A) 4 %; HDW 2.53; HGB 13.2 gm/dL (11.4-16.0); Hypochromasia Slight; Luc # (Auto) 0.13; Luc % (Auto) 1; Lymphocytes # (A) 3.1 k/uL (1.0-4.8); Lymphocytes % (A) 29 %; MCH 29.7 pg (25.0-35.0); MCHC 32.2 g/dL (31.0-37.0); MCV 92.2 fL (80.0-100.0); Mean Platelet Volume 6.9; Monocytes # (A) 0.6 k/uL (0-1.0); Monocytes % (A) 5 %; Neutrophils # (A) 6.4 k/uL (1.3-7.7); Neutrophils % (A) 60 %; RBC 4.44 m/uL (3.80-5.40); RDW 14.1 % (11.5-15.5); WBC 10.6 k/uL (3.8-10.6); WBC (Perox) 10.47
[2016-11-19 08:18] LABS: Anion Gap 10 mmol/L; Blood Urea Nitrogen 8 mg/dL (7-17); Calcium 8.9 mg/dL (8.4-10.2); Carbon Dioxide 22 mmol/L (22-30); Chloride 110 mmol/L (98-107); Glucose 82 mg/dL (74-99); Magnesium 1.9 mg/dL (1.6-2.3); Non-African American GFR(MDRD) >60 (>60 ml/min/1.73 sqM); Potassium 4.3 mmol/L (3.5-5.1); Sodium 142 mmol/L (137-145)
[2016-11-19] MEDS: SYMBICORT 160-4.5 MCG INHALER INHALATION PRN ×2 (08:57→20:33)
[2016-11-19] MEDS: PANTOPRAZOLE 40 MG/10 ML VIAL IV SCH (09:03)
[2016-11-19] MEDS: ENOXAPARIN 40 MG/0.4 ML SYRINGE SQ SCH (09:04)
[2016-11-19] MEDS: busPIRone HCl 5 MG TAB PO SCH ×2 (09:04→21:17)
[2016-11-19] MEDS: TAMSULOSIN 0.4 MG CAP.ER.24H PO SCH (09:04)
[2016-11-19] MEDS: TOPIRAMATE 25 MG TAB PO SCH ×2 (09:05→21:16)
--- NOTE | 2016-11-19 09:13 | P.PN ---
Subjective Principal diagnosis: patient is seen and examined in follow up of acute pyelonephritis failed OP therapy 26 year old female with recurrent nephrolitiasis, presented after being discharged a week ago where at that time she was found to have right uretral stone and underwent cystoscopy and had a uretral stent inserted a week ago. she was discharged on levequin however she is presenting now with worsening urinary symptoms and failed OP therapy with ABx Today she is still complaining of alot of flank pain radiating to the right groin, along with hematuria and nausea. Tolerating diet, afebrile, no chest pain or SOB Objective - Vital Signs Vital signs: Vital Signs Temp 98.7 F 11/19/16 08:33 Pulse 76 11/19/16 09:08 Resp 19 11/19/16 08:33 BP 131/81 11/19/16 08:33 Pulse Ox 97 11/19/16 08:33 Intake & Output 11/18/16 11/19/16 11/19/16 18:59 06:59 18:59 Intake Total 400 Output Total 2000 Balance -1600 Weight 111.7 kg Intake: Oral 400 Output: Urine 2000 Other: Voiding Method Toilet # Voids 2 - Exam Constitutional: vital signs stable, Not in acute distress, pleasant, conversant Lungs: Clear to auscultation bilaterally, normal respiratory effort Cardiovascular: Regular rate and rhythm, no murmurs, no gallops, no rubs, no peripheral edema Gastrointestinal: soft and lax, tenderness over the right costoverteberal angle , bowel sounds positive Extremities: No digital cyanosis, ischemia or clubbing, no calf muscle tenderness, capillary refill is immediate over bilateral toes and fingers Psych: Alert, oriented to place, person and time labs reviewed - Labs CBC & Chem 7: 11/19/16 07:26 11/19/16 07:26 Labs: Abnormal Lab Results - Last 24 Hours (Table) 11/18/16 11/18/16 11/18/16 Range/Units 14:05 14:05 14:05 WBC 11.5 H (3.8-10.6) k/uL Neutrophils # 7.8 H (1.3-7.7) k/uL Chloride 108 H (98-107) mmol/L Total Bilirubin 0.1 L (0.2-1.3) mg/dL Urine Appearance Cloudy H (Clear) Urine Protein 2+ H (Negative) Urine Blood Large H (Negative) Ur Leukocyte Esterase Large H (Negative) Urine RBC >182 H (0-5) /hpf Urine WBC 54 H (0-5) /hpf Ur Squamous Epith Cells 15 H (0-4) /hpf Urine Bacteria Moderate H (None) /hpf Urine Mucus Many H (None) /hpf 11/19/16 Range/Units 07:26 WBC (3.8-10.6) k/uL Neutrophils # (1.3-7.7) k/uL Chloride 110 H (98-107) mmol/L Total Bilirubin (0.2-1.3) mg/dL Urine Appearance (Clear) Urine Protein (Negative) Urine Blood (Negative) Ur Leukocyte Esterase (Negative) Urine RBC (0-5) /hpf Urine WBC (0-5) /hpf Ur Squamous Epith Cells (0-4) /hpf Urine Bacteria (None) /hpf Urine Mucus (None) /hpf Microbiology - Last 24 Hours (Table) 11/18/16 14:05 Urine Culture - Preliminary Urine,Voided Assessment and Plan (1) Pyelonephritis Narrative/Plan: failed outpatient therapy with antibiotics Acute complicated pyelonephritis secondary to right ureteral stent and history of nephrolithiasis. Present on admission . No history of chronic Correa catheter. No evidence of sepsis continue with rocephine, overall seems like patient improving clinically , follow up urine cultures Pain control continue with IV narcotics, and oral motrin Aggressive IV fluid hydration with normal saline at 150 mL per hour await urology input Status: Acute (2) Nephrolithiasis Narrative/Plan: Status post right ureteral stent Consults urology Pain control with NSAIDs continue Flomax strain urine Status: Acute (3) Asthma Narrative/Plan: mild persistent asthma continue with home inhalers patient has no history of intubation Status: Chronic (4) DVT prophylaxis Narrative/Plan: Lovenox daily Status: Acute Plan: hemoglobin stable and improving , patient continues to have hematuria await urine culture results await urology input possible discharge in 24-48 hours Surrogate decision-maker: father Renan Lara CODE STATUS: Full code Discussed with: Patient, RN, and pillowcase cleaner Anticipated discharge place: home with self care
[2016-11-19 13:57] LABS: Hemoglobin A1C 5.4 % (4.2-6.1)
[2016-11-19] MEDS: IBUPROFEN 600 MG TAB PO PRN (14:58)
[2016-11-19] MEDS: OXYBUTYNIN XL 5 MG TAB.ER.24 PO SCH (21:19)
[2016-11-20] MEDS: HYDROmorphone 2 MG/ML 1 ML SYRINGE IM PRN ×3 (01:25→10:55)
[2016-11-20] MEDS: SODIUM CHLORIDE 0.9% 1,000 ML IV STA ×2 (04:03→23:02)
[2016-11-20 07:57] LABS: Basophils # (A) 0.1 k/uL (0-0.2); Basophils % (A) 1 %; CH 28.3; CHCM 31.2; Eosinophils # (A) 0.5 k/uL (0-0.7); Eosinophils % (A) 5 %; HCT 41.2 % (34.0-46.0); HGB 13.1 gm/dL (11.4-16.0); Hypochromasia Slight; Luc # (Auto) 0.18; Luc % (Auto) 2; Lymphocytes % (A) 34 %; MCH 28.9 pg (25.0-35.0); MCHC 31.8 g/dL (31.0-37.0); Mean Platelet Volume 6.7; Monocytes # (A) 0.5 k/uL (0-1.0); Monocytes % (A) 6 %; Neutrophils # (A) 4.7 k/uL (1.3-7.7); Neutrophils % (A) 53 %; RBC 4.52 m/uL (3.80-5.40); RDW 13.2 % (11.5-15.5); WBC (Perox) 9.29
[2016-11-20] MEDS: SYMBICORT 160-4.5 MCG INHALER INHALATION PRN ×2 (08:44→20:25)
[2016-11-20] MEDS: ENOXAPARIN 40 MG/0.4 ML SYRINGE SQ SCH (09:23)
[2016-11-20] MEDS: OXYBUTYNIN XL 5 MG TAB.ER.24 PO SCH (09:23)
[2016-11-20] MEDS: busPIRone HCl 5 MG TAB PO SCH ×2 (09:24→21:35)
[2016-11-20] MEDS: PANTOPRAZOLE 40 MG/10 ML VIAL IV SCH (09:24)
[2016-11-20] MEDS: HYDROcodone/APAP 7.5-325MG 1 EACH TAB PO SCH ×2 (09:25→16:43)
[2016-11-20] MEDS: TOPIRAMATE 25 MG TAB PO SCH ×2 (09:26→21:35)
[2016-11-20] MEDS: TAMSULOSIN 0.4 MG CAP.ER.24H PO SCH (09:26)
--- NOTE | 2016-11-20 11:36 | P.GSCN ---
History of Present Illness Consult date: 11/19/16 Reason for Consult: Flank pain Requesting physician: Mando Richardson History of present illness: The patient is a 26 year old female who presented with a UTI, complicated by a right distal ureteral calculus. She underwent placement of a ureteral stent on 11/14/2016. She is now admitted with right-sided pain when she voids, vaginal pain, and frequency. Review of Systems - Genitourinary Genitourinary: Reports dysuria, Reports flank pain, Reports hematuria Past Medical History Past Medical History: Asthma, Osteoarthritis (OA) Additional Past Medical History / Comment(s): kidney stones recurrent History of Any Multi-Drug Resistant Organisms: None Reported Past Surgical History: Tonsillectomy Additional Past Surgical History / Comment(s): kidney stent right side, RT ovary / 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, tonsillectomy, Past Anesthesia/Blood Transfusion Reactions: No Reported Reaction Past Psychological History: Anxiety Smoking Status: Never smoker Past Alcohol Use History: None Reported Past Drug Use History: None Reported - Past Family History Mother Family Medical History: Congestive Heart Failure (CHF) Father Family Medical History: Diabetes Mellitus Medications and Allergies Home Medications Medication Instructions Recorded Confirmed Type ALPRAZolam [Xanax] 0.25 mg PO BID PRN 11/13/16 11/18/16 History Albuterol Inhaler [Ventolin Hfa 1 puff INHALATION RT-QID PRN 11/13/16 11/18/16 History Inhaler] Albuterol Sulfate 1.25 mg INHALATION RT-TID PRN 11/13/16 11/18/16 History Baclofen [Lioresal] 20 mg PO BID PRN 11/13/16 11/18/16 History Budesonide-Formot 160-4.5 Mcg 1 puff INHALATION RT-BID PRN 11/13/16 11/18/16 History [Symbicort 160-4.5 Mcg Inhaler] HYDROcodone/APAP 7.5-325MG [[place] 1 tab PO BID 11/13/16 11/18/16 History 7.5-325] Ibuprofen 600 mg PO BID PRN 11/13/16 11/18/16 History Levofloxacin [Levaquin] 500 mg PO DAILY 11/13/16 11/18/16 History Omeprazole 20 mg PO DAILY 11/13/16 11/18/16 History Ondansetron [Zofran ODT] 4 mg PO Q8HR PRN 11/13/16 11/18/16 History Topiramate [Topamax] 50 mg PO BID 11/13/16 11/18/16 History busPIRone HCL [Buspar] 7.5 mg PO BID 11/13/16 11/18/16 History Allergies Allergy/AdvReac Type Severity Reaction Status Date / Time ketorolac [From Toradol] Allergy Rash/Hives Verified 11/18/16 13:50 metronidazole [From Flagyl] Allergy Rash/Hives Verified 11/18/16 13:50 Surgical - Exam Vital Signs Temp Pulse Resp BP Pulse Ox 98.1 F 76 18 134/74 96 11/18/16 13:35 11/18/16 13:35 11/18/16 13:35 11/18/16 13:35 11/18/16 13:35 - General well developed, well nourished, no distress - Abdomen Abdomen: soft, tender (mild right-sided tenderness and right CVA tenderness), no guarding, no rebound, no distended - Psychiatric oriented to time, oriented to person, oriented to place, speech is normal, memory intact Results - Labs 11/20/16 07:08 11/19/16 07:26 Abnormal Lab Results - Last 24 Hours (Table) 11/19/16 Range/Units 07:26 Chloride 110 H (98-107) mmol/L Microbiology - Last 24 Hours (Table) 11/18/16 14:05 Urine Culture - Preliminary Urine,Voided Diabetes panel 11/19/16 11/19/16 Range/Units 07:26 07:26 Sodium 142 (137-145) mmol/L Potassium 4.3 (3.5-5.1) mmol/L Chloride 110 H (98-107) mmol/L Carbon Dioxide 22 (22-30) mmol/L BUN 8 (7-17) mg/dL Creatinine 0.70 (0.52-1.04) mg/dL Glucose 82 (74-99) mg/dL Hemoglobin A1c 5.4 (4.2-6.1) % Calcium 8.9 (8.4-10.2) mg/dL Calcium panel 11/19/16 Range/Units 07:26 Calcium 8.9 (8.4-10.2) mg/dL Pituitary panel 11/19/16 Range/Units 07:26 Sodium 142 (137-145) mmol/L Potassium 4.3 (3.5-5.1) mmol/L Chloride 110 H (98-107) mmol/L Carbon Dioxide 22 (22-30) mmol/L BUN 8 (7-17) mg/dL Creatinine 0.70 (0.52-1.04) mg/dL Glucose 82 (74-99) mg/dL Calcium 8.9 (8.4-10.2) mg/dL Adrenal panel 11/19/16 Range/Units 07:26 Sodium 142 (137-145) mmol/L Potassium 4.3 (3.5-5.1) mmol/L Chloride 110 H (98-107) mmol/L Carbon Dioxide 22 (22-30) mmol/L BUN 8 (7-17) mg/dL Creatinine 0.70 (0.52-1.04) mg/dL Glucose 82 (74-99) mg/dL Calcium 8.9 (8.4-10.2) mg/dL - Imaging CT scan - abdomen: report reviewed, image reviewed Assessment and Plan Plan: Urine culuture is negative. Will attempt to obtain 11/13/2016 urine culture result from [place]. Oxybutynin prescribed to help with stent pain. Will need out-patient cystoscopy, right ureteral stent removal, and right ureteroscopy in 1-2 weeks. This will be scheduled.
[2016-11-20] MEDS: ALPRAZolam 0.25 MG TAB PO PRN ×2 (12:21→21:40)
[2016-11-20 12:31] LABS: Anion Gap 9 mmol/L; Blood Urea Nitrogen 7 mg/dL (7-17); Calcium 9.2 mg/dL (8.4-10.2); Carbon Dioxide 23 mmol/L (22-30); Chloride 109 mmol/L (98-107); Glucose 84 mg/dL (74-99); Non-African American GFR(MDRD) >60 (>60 ml/min/1.73 sqM); Potassium 4.4 mmol/L (3.5-5.1); Sodium 141 mmol/L (137-145)
[2016-11-20] MEDS: HYDROmorphone 1 MG/ML 1 ML SYRINGE IVP PRN (19:12)
--- NOTE | 2016-11-20 19:33 | P.PN ---
Subjective Principal diagnosis: Right Pyelonephritis with renal colic The patient was seen and examined . For follow up of acute pyelonephritis that failed OP therapy 26 year old female with recurrent nephrolitiasis, presented after being discharged a week ago where at that time she was found to have right uretral stone and underwent cystoscopy and had a uretral stent inserted a week ago. she was discharged on levequin however she is presenting now with worsening urinary symptoms and failed OP therapy with ABx She is still complaining of right flank pain radiating to the right groin, along with hematuria and nausea. Tolerating diet, afebrile, no chest pain or SOB She is asking for dilauded even without apparent pain. Her physical sighns are not convincing for the amt of pain she cried for suggesting possible drug seeking behaviour. She is known with chr LBP under pain management clinic care. c/o dyspepsia and her pain and tenderness // anteriorly in RUQ Currently on Levaquin iv Objective - Vital Signs Vital signs: Vital Signs Temp 98 F 11/20/16 17:10 Pulse 59 L 11/20/16 17:10 Resp 20 11/20/16 17:10 BP 111/72 11/20/16 17:10 Pulse Ox 100 11/20/16 17:10 Intake & Output 11/20/16 11/20/16 11/21/16 06:59 18:59 06:59 Intake Total 900 Output Total 2900 2140 Balance -1999 -0 Intake: Oral 900 Output: Urine 2900 2140 Other: Voiding Method Toilet Toilet # Voids 1 - Constitutional General appearance: Present: average body habitus, no acute distress - EENT Eyes: Present: anicteric sclerae, EOMI, PERRLA. Absent: abnormal pupil ENT: Present: hearing grossly normal, NA/AT, normal oropharynx Ears: bilateral: normal - Neck Neck: Present: normal ROM. Absent: rigidity, stridor, thyromegaly Carotids: bilateral: upstroke normal, bruit absent Thyroid: negative: normal size, enlarged, firm, nodule - Respiratory Respiratory: bilateral: CTA, negative: diminished, dullness, rales, rhonchi, wheezing - Cardiovascular Rhythm: regular Heart sounds: normal: S1, S2 Abnormal Heart Sounds: Absent: systolic murmur, diastolic murmur, rub, S3 Gallop , S4 Gallop, click, other - Gastrointestinal Localized gastrointestinal: tender: RUQ (no gaurding,soft) - Integumentary Integumentary: Absent: calor, cellulitis, cyanotic, decreased turgor, flushed, jaundiced, normal, normal turgor, pale, rash, ulcer - Neurologic Neurologic: Present: CNII-XII intact. Absent: focal deficits - Musculoskeletal Musculoskeletal: Present: strength equal bilaterally. Absent: right sided weakness, left sided weakness - Psychiatric Psychiatric: Present: A&O x's 3, intact judgment & insight - Labs CBC & Chem 7: 11/20/16 07:08 11/20/16 07:08 Labs: Abnormal Lab Results - Last 24 Hours (Table) 11/20/16 Range/Units 07:08 Chloride 109 H (98-107) mmol/L Microbiology - Last 24 Hours (Table) 11/18/16 14:05 Urine Culture - Final Urine,Voided 11/18/16 18:24 Blood Culture - Preliminary Blood No Growth after 24 hours Assessment and Plan (1) DVT prophylaxis Status: Acute (2) Flank pain Narrative/Plan: due to renal colic Status: Acute (3) Hematuria Narrative/Plan: intermittent Status: Acute (4) History of ureter stent Status: Chronic (5) Nephrolithiasis Narrative/Plan: right renal stones with recurrent uti , failed medical therapy urology consult noted f/u urine c/s : still negative Status: Acute (6) Pyelonephritis Narrative/Plan: recurrent continue iv levaquin needs removal of stent and sx for stones removal Status: Acute (7) UTI (urinary tract infection) Narrative/Plan: recurrent , pyelonephritis Status: Acute Plan: pain control u/s abdomen ; renal and gallbladder urology care requires Sx iv levaquin advised patient to use po norco and reduce dilauded to avoid addiction cx Time with Patient: Less than 30
[2016-11-20] MEDS: IBUPROFEN 600 MG TAB PO PRN (22:10)
[2016-11-21] MEDS: HYDROcodone/APAP 7.5-325MG 1 EACH TAB PO SCH ×4 (01:19→22:02)
[2016-11-21] MEDS: HYDROmorphone 1 MG/ML 1 ML SYRINGE IVP PRN ×3 (02:58→18:03)
[2016-11-21 07:09] LABS: CH 28.4; CHCM 31.1; HCT 41.6 % (34.0-46.0); HDW 2.51; HGB 13.4 gm/dL (11.4-16.0); Hypochromasia Slight; MCH 29.5 pg (25.0-35.0); MCHC 32.2 g/dL (31.0-37.0); MCV 91.5 fL (80.0-100.0); Mean Platelet Volume 6.5; RBC 4.54 m/uL (3.80-5.40); RDW 13.2 % (11.5-15.5); WBC 10.6 k/uL (3.8-10.6)
[2016-11-21 07:21] LABS: Anion Gap 11 mmol/L; Blood Urea Nitrogen 10 mg/dL (7-17); Calcium 9.3 mg/dL (8.4-10.2); Carbon Dioxide 23 mmol/L (22-30); Chloride 110 mmol/L (98-107); Glucose 81 mg/dL (74-99); Non-African American GFR(MDRD) >60 (>60 ml/min/1.73 sqM); Potassium 4.2 mmol/L (3.5-5.1); Sodium 144 mmol/L (137-145)
--- NOTE | 2016-11-21 08:02 | US ---
EXAMINATION TYPE: US abdomen limited DATE OF EXAM: 11/21/2016 COMPARISON: NONE CLINICAL HISTORY: 26-year-old female pain. TECHNIQUE: Multiple sonographic images of the right upper quadrant are obtained. FINDINGS: Liver Length: 14.0 cm Gallbladder Wall: 0.2 cm CBD: 5.9 mm Right Kidney: 12.4 x 5.0 x 4.7 cm Pancreas: wnl Liver: Normal size with homogeneous echotexture. No focal lesion seen. Gallbladder: Gallbladder is at the upper limits of normal in size. Evidence for sonographic Gallardo's sign: tenderness CBD: Borderline dilated Right Kidney: 2 echogenic foci noted noted in the upper pole. Mild right-sided pelvicaliectasis. IMPRESSION: 1. Gallbladder distended to the upper limits of normal probably due to fasting state. No findings of cholelithiasis or ancillary findings of acute cholecystitis. However, given a possible positive sonog raphic Gallardo sign, if further imaging evaluation of the gallbladder is desired, HIDA scan can be per formed. 2. Borderline dilated bile duct. Correlate with alkaline phosphatase and bilirubin levels to exclude biliary obstruction. If laboratory values are abnormal, correlate as to the utility of ERCP or MRCP t o further evaluate. 3. A couple punctate 2 mm nonobstructive calculi in the upper pole right kidney. There is mild right- sided pelvicaliectasis which may be transient. Follow-up can be considered.
[2016-11-21] MEDS: ALPRAZolam 0.25 MG TAB PO PRN ×2 (08:06→23:26)
[2016-11-21] MEDS: PANTOPRAZOLE 40 MG TABLET PO SCH (08:06)
[2016-11-21] MEDS: TOPIRAMATE 25 MG TAB PO SCH ×2 (08:06→21:26)
[2016-11-21] MEDS: OXYBUTYNIN XL 5 MG TAB.ER.24 PO SCH (08:07)
[2016-11-21] MEDS: TAMSULOSIN 0.4 MG CAP.ER.24H PO SCH (08:07)
[2016-11-21] MEDS: ENOXAPARIN 40 MG/0.4 ML SYRINGE SQ SCH (08:08)
[2016-11-21] MEDS: busPIRone HCl 5 MG TAB PO SCH ×2 (08:08→21:27)
[2016-11-21] MEDS: SYMBICORT 160-4.5 MCG INHALER INHALATION PRN ×2 (08:53→21:06)
--- NOTE | 2016-11-21 10:32 | P.PN ---
Subjective The patient had an emergent placement of a double-J catheter for an obstructing ureteral stone with pyelonephrosis, urinary tract infections with sepsis 1 week ago. She was readmitted to the hospital for what was thought to be pyelonephritis but is actually just stent pain. Her cultures are negative, her temperature has been normal and her white blood cell count has been normal. The patient is quite anxious and has tolerance to discomfort. I long discussion with her about this situation. We'll set her up for a cystoscopy stent and stone removal in the near future. She can be discharged home at any time if this cannot be accomplished in the next 24 hours. Objective - Vital Signs Vital signs: Vital Signs Temp 98.4 F 11/21/16 07:00 Pulse 87 11/21/16 07:00 Resp 24 11/21/16 07:00 BP 133/82 11/21/16 00:00 Pulse Ox 96 11/21/16 07:00 Intake & Output 11/20/16 11/21/16 11/21/16 18:59 06:59 18:59 Intake Total 600 Output Total 2140 400 Balance -2140 200 Intake: Oral 600 Output: Urine 2140 400 Other: Voiding Method Toilet Toilet Toilet # Voids 1 2 # Bowel Movements 1 - Labs CBC & Chem 7: 11/21/16 06:38 11/21/16 06:38 Labs: Abnormal Lab Results - Last 24 Hours (Table) 11/20/16 11/21/16 Range/Units 07:08 06:38 Chloride 109 H 110 H (98-107) mmol/L Microbiology - Last 24 Hours (Table) 11/18/16 18:24 Blood Culture - Preliminary Blood No Growth after 48 hours
[2016-11-21] MEDS: IBUPROFEN 600 MG TAB PO PRN ×3 (10:37→22:51)
[2016-11-21] MEDS ORDERED: traMADol 50 MG TAB PO STA (12:54)
--- NOTE | 2016-11-21 13:31 | P.PN ---
Progress Note - Text I will schedule the patient for a cystoscopy, stent removal ureteroscopy and laser lithotripsy for 11/22/2016 at 11:30 AM
--- NOTE | 2016-11-21 18:07 | P.PN ---
Subjective Principal diagnosis: Right Pyelonephritis with renal colic The patient was seen and examined . For follow up of acute pyelonephritis that failed OP therapy 26 year old female with recurrent nephrolitiasis, presented after being discharged a week ago where at that time she was found to have right uretral stone and underwent cystoscopy and had a uretral stent inserted a week ago. she was discharged on levequin however she is presenting now with worsening urinary symptoms and failed OP therapy with ABx She is still complaining of right flank pain radiating to the right groin, along with hematuria and nausea. Tolerating diet, afebrile, no chest pain or SOB She is asking for dilauded even without apparent pain. Her physical sighns are not convincing for the amt of pain she cried for suggesting possible drug seeking behaviour. She is known with chr LBP under pain management clinic care. c/o dyspepsia and her pain and tenderness // anteriorly in RUQ : U/S abdomen is negative Currently on Levaquin iv Dr Rodríguez dennis operate to remove the stent tomorrow will keep' Pain managenment Objective - Vital Signs Vital signs: Vital Signs Temp 98.4 F 11/21/16 16:43 Pulse 64 11/21/16 16:45 Resp 18 11/21/16 16:45 BP 152/91 11/21/16 16:43 Pulse Ox 100 11/21/16 16:43 Intake & Output 11/20/16 11/21/16 11/21/16 18:59 06:59 18:59 Intake Total 600 Output Total 2140 400 Balance -2140 200 Intake: Oral 600 Output: Urine 2140 400 Other: Voiding Method Toilet Toilet Toilet # Voids 1 2 2 # Bowel Movements 1 - Constitutional General appearance: Present: no acute distress, obese - EENT Eyes: Present: anicteric sclerae, EOMI, PERRLA ENT: Present: NA/AT, normal oropharynx Ears: bilateral: normal - Neck Neck: Present: normal ROM. Absent: lymphadenopathy, rigidity, stridor, thyromegaly Carotids: bilateral: upstroke normal, bruit absent Thyroid: negative: normal size, enlarged, firm, nodule - Respiratory Respiratory: bilateral: CTA, negative: diminished, dullness, rales, rhonchi, wheezing, prolonged expiration - Cardiovascular Rhythm: regular Heart sounds: normal: S1, S2 Abnormal Heart Sounds: Absent: systolic murmur, diastolic murmur, rub, S3 Gallop , S4 Gallop, click, other - Gastrointestinal General gastrointestinal: Present: normal bowel sounds, scaphoid, soft. Absent : absent bowel sounds, decreased bowel sounds, distended, hepatomegaly, hyperactive bowel sounds, organomegaly, rigid, splenomegaly, tenderness, umbilical hernia, ventral hernia - Integumentary Integumentary: Absent: calor, cellulitis, cyanotic, decreased turgor, flushed, jaundiced, normal, normal turgor, pale, rash, ulcer - Neurologic Neurologic: Present: CNII-XII intact, focal deficits - Musculoskeletal Musculoskeletal: Present: gait normal, strength equal bilaterally. Absent: generalized weakness, right sided weakness, left sided weakness - Psychiatric Psychiatric: Present: A&O x's 3, appropriate affect, intact judgment & insight - Labs CBC & Chem 7: 11/21/16 06:38 11/21/16 06:38 Labs: Abnormal Lab Results - Last 24 Hours (Table) 11/21/16 Range/Units 06:38 Chloride 110 H (98-107) mmol/L Microbiology - Last 24 Hours (Table) 11/18/16 18:24 Blood Culture - Preliminary Blood No Growth after 48 hours Assessment and Plan (1) DVT prophylaxis Status: Acute (2) Flank pain Narrative/Plan: due to renal colic still c/o pain but i felt it was exagerrated planned for sx in am Status: Acute (3) Hematuria Narrative/Plan: intermittent resolved Status: Acute (4) History of ureter stent Narrative/Plan: for removal Sx in am Status: Chronic (5) Nephrolithiasis Narrative/Plan: right renal stones with recurrent uti , failed medical therapy urology consult noted f/u urine c/s : still negative u/s abdomen : small 2 mm stone in right kidney Status: Acute (6) Pyelonephritis Narrative/Plan: recurrent continue iv levaquin urine c/s : negative needs removal of stent and sx for stones removal Status: Acute (7) UTI (urinary tract infection) Narrative/Plan: recurrent , pyelonephritis urine c/s : negative Status: Acute Plan: pain control u/s abdomen ; renal and gallbladder : No acute process urology care requires Sx i am iv levaquin advised patient to use po norco and reduce dilauded to avoid addiction cx Time with Patient: Greater than 30
[2016-11-22] MEDS: HYDROmorphone 1 MG/ML 1 ML SYRINGE IVP PRN ×2 (01:27→08:55)
[2016-11-22] MEDS: HYDROcodone/APAP 7.5-325MG 1 EACH TAB PO SCH ×3 (07:33→13:36)
[2016-11-22] MEDS: PANTOPRAZOLE 40 MG TABLET PO SCH (07:48)
[2016-11-22] MEDS: TOPIRAMATE 25 MG TAB PO SCH (07:49)
[2016-11-22] MEDS: ENOXAPARIN 40 MG/0.4 ML SYRINGE SQ SCH (08:00)
[2016-11-22] MEDS: SODIUM CHLORIDE 0.9% 1,000 ML IV STA (08:01)
[2016-11-22] MEDS: busPIRone HCl 5 MG TAB PO SCH (08:06)
[2016-11-22] MEDS: SYMBICORT 160-4.5 MCG INHALER INHALATION PRN (08:45)
[2016-11-22] MEDS ORDERED: IV FLUID CONTINUATION 1,000 ML IV ONE (10:49)
[2016-11-22] MEDS ORDERED: MIDAZOLAM 2 MG/2 ML VIAL IV ONE (11:01)
[2016-11-22] MEDS ORDERED: SUCCINYLCHOLINE CHLORIDE VIAL 200 MG/10 ML VIAL IV ONE (11:32)
[2016-11-22] MEDS ORDERED: LIDOCAINE 1% INJ 10MG/ML (20 ML MDV) ONE (11:32)
[2016-11-22] MEDS ORDERED: MIDAZOLAM 2 MG/2 ML VIAL ONE (11:32)
[2016-11-22] MEDS ORDERED: PROPOFOL 10 MG/ML 20 ML VIAL IV ONE (11:32)
[2016-11-22] MEDS ORDERED: HYDROmorphone (PF) 1 MG/ML ONE (11:32)
[2016-11-22] MEDS ORDERED: KETAMINE 10 MG/ML 20 ML VIAL ONE (11:32)
[2016-11-22] MEDS ORDERED: DEXAMETHASONE SOD PHOS (MDV) 100 MG/10 ML VIAL ONE (11:32)
[2016-11-22] MEDS ORDERED: fentaNYL (PF) 50 MCG/ML 2 ML AMP ONE (11:32)
[2016-11-22] MEDS ORDERED: ONDANSETRON ODT 4 MG TAB PO PRN (12:06)
--- NOTE | 2016-11-22 12:12 | P.OP ---
Date of Procedure: 11/22/16 Preoperative Diagnosis: Right ureteral stone status post stent placement and antibiotic usage for an obstructing stone with pyelonephrosis Postoperative Diagnosis: Same Procedure(s) Performed: Cystoscopy, removal double-J catheter right, right ureteroscopy with laser lithotripsy Anesthesia: KEYLA Surgeon: Jose Jarvis Estimated Blood Loss (ml): 0 Pathology: other (Stone) Condition: stable Disposition: PACU Indications for Procedure: The patient is a 26-year-old female who one week ago underwent emergency placement of a double-J catheter due to an obstructing stone, urinary tract infection with sepsis and pyelonephrosis. She is readmitted to the hospital due to stent pain. SHe is now week out and will undergo cystoscopy stent and stone removal Description of Procedure: The patient is brought to the operating suite. She is given a general endotracheal anesthesia. She's placed in lithotomy position with a sterile prep and drape. Cystoscopy of the Foroblique lens and 22-[place] sheath identifies a normal bladder, the double-J catheter emanating from the right ureteral orifice. The stent is grasped and pulled to the urethral meatus. Through the stent is passed an 035 wire up into the kidney. The stent is removed. Alongside the wires and passed a 7-[place] mini ureteroscope. On the seen just above the bladder. With the 365 laser probe the stone was broken into tiny pieces and flushed out of the ureter. There is not enough edema to replace the double-J catheter. The bladder is drained. Stone fragments are sent to pathology. This wire is removed. The patient's awakened and returned recovery room good condition. She'll be discharged home later today upon recovery. She'll be seen in the office in 7-10 days.
[2016-11-22] MEDS ORDERED: LEVOFLOXACIN 500 MG TAB PO SCH (13:00)
[2016-11-22 13:22] VITALS: RESP 20; TEMP 97.1
[2016-11-22] MEDS: TAMSULOSIN 0.4 MG CAP.ER.24H PO SCH (13:54)
[2016-11-22] MEDS: OXYBUTYNIN XL 5 MG TAB.ER.24 PO SCH (13:54)
--- NOTE | 2016-11-22 13:55 | P.DS ---
Providers Date of admission: 11/18/16 16:28 Expected date of discharge: 11/22/16 Attending physician: Rossana Ramirez DO Consults: 11/18/16 16:29 Consult Physician Routine Consulting Provider: Jose Jarvis Consult Reason/Comments: flank pain Do you want consulting provider notified?: Yes Primary care physician: Han Ngo - Discharge Diagnosis(es) (1) Nephrolithiasis Status: Acute (2) Flank pain Status: Acute Priority: High Onset Date: ~11/19/16 (3) Intractable pain Status: Acute (4) Chronic back pain Status: Acute (5) Hematuria Status: Acute Priority: High Onset Date: ~11/18/16 Hospital Course: Patient is a 26-year-old female with a history of recent nephrolithiasis and pyelonephritis status post stent placement, chronic back pain, and asthma who presented with complaint of flank pain and hematuria. In the ER she underwent an extensive evaluation. Her son have a slight leukocytosis, intractable pain refractory to medications, and possible recurrent urinary tract infection. She was admitted for further evaluation. Her urinalysis ultimately came back negative. She was seen by urology and underwent stent removal and lithotripsy on 11/22. She struggled with pain control throughout her hospitalization. After lithotripsy she was requesting to go home. She has alerted her pain management physician that she is in the hospital gotten the okay to adjust her pain regimen. We discussed continuing with the Flomax and to [place] for the next 5 days. We will also initiate Pyridium to help with anesthetizing the urinary tract. She'll finish up her course of Levaquin. I have given her [place] 10/325 to take instead of the 7.5/ 325 for the next several days. She realizes that she cannot combine these 2 medications. Patient was determined stable for discharge home. We'll need to follow-up with urology in the next 5-7 days. Patient seen and examined at bedside. Anxious but overall feeling better and pain better controlled. Denies any chest pain, shortness of breath. Still complains of dysuria. Vital signs reviewed and stable. General: non toxic, mild distress, appears at stated age Derm: no rashes, no lesions Head: atraumatic, normocephalic, symmetric Eyes: EOMI, no lid lag, anicteric sclera ENT: no post nasal drip, no thrush Mouth: no lip lesion, mucus membranes moist Cardiovascular: S1S2 reg, no murmur, positive posterior tibial pulse bilateral, Lungs: CTA bilateral, no rhonchi, no rales , no accessory muscle use Abdominal: soft, nontender to palpation, no guarding, no appreciable organomegaly Ext: no gross muscle atrophy, no edema, no contractures Neuro: CN II-XI grossly intact, no focal neuro deficits Psych: Alert, oriented, appropriate affect A total of 35 minutes of time were spent preparing this complex discharge summary . Pertinent Studies: , Normal ultrasound-gallbladder upper limits of normal, punctate 2 mm nonobstructive calculi in the upper pole of the right kidney, possible cystic duct dilation (AST ALT and bilirubin normal) Procedures: 11/22 and stent removal and lithotripsy Patient Condition at Discharge: Stable Plan - Discharge Summary New Discharge Prescriptions: New HYDROcodone/APAP 10-325MG [[place] 10-325] 1 tab PO Q6H PRN #21 tab PRN Reason: Pain Oxybutynin Xl [Ditropan XL] 15 mg PO DAILY #5 tab Phenazopyridine [Pyridium] 100 mg PO TID #15 tablet Tamsulosin [Flomax] 0.4 mg PO PC-BRKFST #5 cap Fluconazole [Diflucan] 150 mg PO ONCE #1 tab Continue Albuterol Inhaler [Ventolin Hfa Inhaler] 1 puff INHALATION RT-QID PRN PRN Reason: Shortness Of Breath Albuterol Sulfate 1.25 mg INHALATION RT-TID PRN PRN Reason: Shortness Of Breath ALPRAZolam [Xanax] 0.25 mg PO BID PRN PRN Reason: Anxiety Baclofen [Lioresal] 20 mg PO BID PRN PRN Reason: Muscle Spasm Budesonide-Formot 160-4.5 Mcg [Symbicort 160-4.5 Mcg Inhaler] 1 puff INHALATION RT-BID PRN PRN Reason: Shortness Of Breath busPIRone HCL [Buspar] 7.5 mg PO BID HYDROcodone/APAP 7.5-325MG [[place] 7.5-325] 1 tab PO BID Ibuprofen 600 mg PO BID PRN PRN Reason: Pain Levofloxacin [Levaquin] 500 mg PO DAILY Omeprazole 20 mg PO DAILY Topiramate [Topamax] 50 mg PO BID Discontinued Ondansetron [Zofran ODT] 4 mg PO Q8HR PRN PRN Reason: Nausea And/Or Vomiting Discharge Medication List ALPRAZolam [Xanax] 0.25 mg PO BID PRN 11/13/16 [History] Albuterol Inhaler [Ventolin Hfa Inhaler] 1 puff INHALATION RT-QID PRN 11/13/16 [ History] Albuterol Sulfate 1.25 mg INHALATION RT-TID PRN 11/13/16 [History] Baclofen [Lioresal] 20 mg PO BID PRN 11/13/16 [History] Budesonide-Formot 160-4.5 Mcg [Symbicort 160-4.5 Mcg Inhaler] 1 puff INHALATION RT-BID PRN 11/13/16 [History] HYDROcodone/APAP 7.5-325MG [[place] 7.5-325] 1 tab PO BID 11/13/16 [History] Ibuprofen 600 mg PO BID PRN 11/13/16 [History] Levofloxacin [Levaquin] 500 mg PO DAILY 11/13/16 [History] Omeprazole 20 mg PO DAILY 11/13/16 [History] Topiramate [Topamax] 50 mg PO BID 11/13/16 [History] busPIRone HCL [Buspar] 7.5 mg PO BID 11/13/16 [History] Fluconazole [Diflucan] 150 mg PO ONCE #1 tab 11/22/16 [Rx] HYDROcodone/APAP 10-325MG [[place] 10-325] 1 tab PO Q6H PRN #21 tab 11/22/16 [Rx] Oxybutynin Xl [Ditropan XL] 15 mg PO DAILY #5 tab 11/22/16 [Rx] Phenazopyridine [Pyridium] 100 mg PO TID #15 tablet 11/22/16 [Rx] Tamsulosin [Flomax] 0.4 mg PO PC-BRKFST #5 cap 11/22/16 [Rx] Follow up Appointment(s)/Referral(s): Han Ngo DO [Primary Care Provider] - 1-2 days Jose Jarvis MD [STAFF PHYSICIAN] - 11/29/16 11:00 am (You have a follow up appointment with DR Jarvis on Tuesday, November 29, 2016 at 11:00 am.) Patient Instructions/Handouts: Non-pharmacological Pain Management Therapies for Adults (GEN), Pain Management After Surgery (DC) Activity/Diet/Wound Care/Special Instructions: regular diet, activity as tolerated. you may expect some blood in the urine during the next 24 huors. Drink plenty of fluids. Call Dr Jarvis if you are unable to urinate, if you develop a fever, or if you have any other questions or concerns. Discharge Disposition: HOME SELF-CARE
[2016-11-22 15:04] VITALS: BP 151/83; PULSE 85
[2016-11-23] MEDS ORDERED: NON-FORMULARY DRUG (Omeprazole [Omeprazole] 20 MG) PO SCH (09:00)
== END 2016-11-22 14:54 | disposition home or self-care (01) | DRG 670 ==
LOC: EC 13:32 → 6PED 16:28
PROVIDERS: ADMIT Internal Medicine; ATTEND Internal Medicine
PROC: 0TP98DZ Removal of Intraluminal Device from Ureter, Via Natural or Artificial Opening Endoscopic (ICD-10-PCS; principal; 2016-11-22 11:30)
PROC: 0TC68ZZ Extirpation of Matter from Right Ureter, Via Natural or Artificial Opening Endoscopic (ICD-10-PCS; 2016-11-22 11:30)
DX: N20.2 Calculus of kidney with calculus of ureter (principal); F41.9 Anxiety disorder, unspecified; F17.200 Nicotine dependence, unspecified, uncomplicated; G89.29 Other chronic pain; J45.30 Mild persistent asthma, uncomplicated; M19.90 Unspecified osteoarthritis, unspecified site; K21.9 Gastro-esophageal reflux disease without esophagitis; M54.5 Low back pain; Z83.3 Family history of diabetes mellitus; Z82.49 Family history of ischemic heart disease and other diseases of the circulatory system; Z79.899 Other long term (current) drug therapy; Z79.51 Long term (current) use of inhaled steroids; Z87.442 Personal history of urinary calculi; Z88.8 Allergy status to other drugs, medicaments and biological substances; Z87.440 Personal history of urinary (tract) infections; Z76.5 Malingerer [conscious simulation]; Z88.1 Allergy status to other antibiotic agents
CPT/HCPCS: 36415; 74176; 76705; 80048; 80053; 81001; 81025; 82365; 83036; 83735; 85025; 85027; 85610; 85730; 87040; 87086; 94640; 96360; 96361; 96365; 96375; 96376; 99285